=== PATIENT | female | born 1940 | race Caucasian/White ===

== ENCOUNTER 2019-07-21 14:07 | Outpatient (CLI) | payer MEDICARE, SELFPAY ==
--- NOTE | 2019-07-21 15:21 | ECG_ITS ---
Measurements Intervals [place] Rate: 84 P: 74 FL: 155 QRS: 21 QRSD: 78 T: 30 QT: 374 QTc: 443 Interpretive Statements SINUS RHYTHM BORDERLINE ST-T WAVE ABNORMALITY- DIFFUSE LEADS BASELINE ARTIFACT- I, II, III, AVR, AVL, AVF BORDERLINE ECG Electronically Signed On 07-21-2019 16:58:26 PARTY COORDINATOR by Lawrence Fermin D.O.
[2019-07-21 15:55] LABS: Basophils Percent Auto 0.4 % (0.2-1.2); Eosinophils Absolute Auto 0.1 K/mm3 (0-0.3); Eosinophils Percent Auto 0.5 % (0-4.4); Hematocrit 41.4 % (37.0-47.0); Hemoglobin 12.6 g/dL (12.0-15.0); Immature Granulocyte Absolute 0.03 K/mm3 (0.00-0.031); Immature Granulocyte Percent A 0.3 % (0-0.5); Lymphocytes Absolute Auto 1.22 K/mm3 (0.9-3.2); Lymphocytes Percent Auto 12.5 % (18.3-44.2); Mean Corpuscular HGB Conc 30.4 g/dl (32-36); Mean Corpuscular Hemoglobin 28.1 pg (26-34); Mean Corpuscular Volume 92.4 fl (80-100); Mean Platelet Volume 8.4 fl (7.4-10.4); Monocytes Absolute Auto 0.6 K/mm3 (0.1-0.6); Monocytes Percent Auto 5.6 % (2.6-8.5); Neutrophils Absolute Auto 7.9 K/mm3 (1.3-6.7); Neutrophils Percent Auto 80.7 % (45.5-73.1); Platelet Count Result 298 k/mm3 (150-375); Red Blood Count 4.48 M/mm3 (4.2-5.4); Red Cell Distribution Width 13.6 % (11.5-14.5); White Blood Count 9.8 K/mm3 (4.5-10.0)
[2019-07-21 16:09] LABS: Alanine Aminotransferase 17 U/L (4-35); Albumin Level 4.3 g/dL (3.5-5.1); Alkaline Phosphatase 182 U/L (38-126); Aspartate Amino Transferase 29 U/L (14-36); Bilirubin,Total 0.3 mg/dL (0.2-1.3); Blood Urea Nitrogen 11 mg/dL (7-17); Calcium 8.5 mg/dL (8.4-10.2); Carbon Dioxide 30 mmol/L (22-30); Chloride 102 mmol/L (98-107); Estimated Glomerular Filt Rate > 60; Glucose 94 mg/dL (65-105); INR 0.9; Potassium 3.7 mmol/L (3.4-5.0); Prothrombin Time 12.2 Seconds (11.1-14.7); Sodium 142 mmol/L (137-145)
[2019-07-21 16:10] LABS: Partial Thromboplastin Time 28.3 SECONDS (22.3-36.8)
[2019-07-21 16:11] LABS: Phenytoin Dilantin 10 ug/mL (10-20)
== END 2019-07-21 14:08 | disposition home or self-care (01) ==
LOC: ANHSURGERY 14:14
PROVIDERS: Anesthesiology; Visit Provider Urology
DX: N81.10 Cystocele, unspecified (principal); E78.00 Pure hypercholesterolemia, unspecified; G40.909 Epilepsy, unspecified, not intractable, without status epilepticus; R94.31 Abnormal electrocardiogram [ECG] [EKG]
CPT/HCPCS: 36415; 80053; 80185; 85025; 85610; 85730; 86850; 86900; 86901; 87077; 87086; 87088; 87186; 93005

== ENCOUNTER 2019-08-01 01:20 | Day surgery (SDC) | payer MEDICARE, SELFPAY ==
[2019-07-21 14:47] VITALS: BP 152/88; PULSE 86; RESP 18; TEMP 37.1; O2SAT 97; BMI 25.0
[2019-08-01] VITALS (15 sets, daily range): BP systolic 118–158; BP diastolic 59–85; PULSE 80–94; RESP 12–20; TEMP 36.5–37.3; O2SAT 94–99
--- NOTE | 2019-08-01 07:24 | WPDHPUPDATE1 ---
History and Physical Update Update Date/Time: 08/01/19 07:24 History and Physical has been reviewed, including an updated exam of the patient. There are NO changes in the patient's condition. Risks, benefits, and alternatives have been discussed and questions answered. Patient agrees to proceed with procedure.
[2019-08-01] MEDS: LACTATED RINGERS 1,000 ML 30 ML IV CONT (09:20)
--- NOTE | 2019-08-01 09:31 | WPDANESEPPF ---
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 Patient Data Age: 78 Gender: F Height: 1.68 m Weight: 70.4 kg Last Vital Signs Temp 37.1 C 07/21/19 14:47 Pulse 86 07/21/19 14:47 Resp 18 07/21/19 14:47 BP 152/88 H 07/21/19 14:47 Pulse Ox 97 07/21/19 14:47 Allergies Allergy/AdvReac Type Severity Reaction Status Date / Time No Known Allergies Allergy Verified 07/21/19 14:26 Home Medications Medication Instructions Recorded Confirmed Type acetaminophen [Tylenol Extra 1,000 mg PO QID PRN 07/21/19 07/21/19 History Strength] cholecalciferol (vitamin D3) 1,000 unit PO DAILY 07/21/19 07/21/19 History cranberry 400 mg PO DAILY 07/21/19 07/21/19 History famotidine 20 mg PO DAILY PRN 07/21/19 07/21/19 History fluticasone furoate 50 mcg INHALATION BID 07/21/19 07/21/19 History furosemide 20 mg PO DAILY 07/21/19 07/21/19 History levothyroxine 50 mcg PO DAILY 07/21/19 07/21/19 History lisinopril 2.5 mg PO DAILY 07/21/19 07/21/19 History loratadine [Claritin] 10 mg PO HS 07/21/19 07/21/19 History phenobarbital 64.8 mg PO BID 07/21/19 07/21/19 History phenytoin sodium extended 200 mg PO BID 07/21/19 07/21/19 History polyethylene glycol 3350 [Miralax] 17 g PO DAILY PRN 07/21/19 07/21/19 History pravastatin 40 mg PO HS 07/21/19 07/21/19 History pyridoxine (vitamin B6) 25 mg PO DAILY 07/21/19 07/21/19 History Patient hx anesthesia problems: none Family hx anesthesia problems: none PMFSH Past Medical History Medical History (Updated 08/01/19 @ 09:31 by Pj Guo DO) GERD (gastroesophageal reflux disease) Hyperlipidemia Hypertension Hypothyroidism BEKAH (obstructive sleep apnea) CPAP Seizure none since 1970's, still takes medication, took today SVT (supraventricular tachycardia) ablation 2004, no issues since Surgical History Surgical History (Updated 07/31/19 @ 08:44 by Pj Guo DO) History of cardiac radiofrequency ablation 2004 History of cholecystectomy History of hysterectomy Anes - Eval Final PreProcedure Day of Procedure 08/01/19 09:31 Patient weight: normal Heart: regular rate and rhythm Lungs: clear to auscultation and normal air movement Airway: Mallampati scale class III Neurological: alert and oriented Last oral intake: >/= 8 hours ASA classification: III Emergent: no Anesthetic plan: proceed Anesthesia type and monitoring: general LMA and standard monitoring Informed Consent: The patient's anesthetic plan and its attendant risks and benefits were discussed with the patient/family/POA. Questions were solicited and answers provided to the satisfaction of the patient/family/POA.
[2019-08-01] MEDS: ceFAZolin 2 GM/D5W 50 ML 2 GM/50 ML BAG IVPB (10:29)
[2019-08-01] MEDS: BUPIVACAINE/EPINEPHRINE 0.25% 50 ML VIAL INFILTRATE (11:00)
--- NOTE | 2019-08-01 12:09 | P.OP_ITS ---
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 She agrees to proceed She was correctly identified and informed consent obtained. She is on the operating room. She was given general anesthesia. Placed in a dorsal lithotomy position. All pressure points were padded. She was given appropriate perioperative antibiotics. A time-out performed. I placed a [place] retractor. I placed a Negrete catheter. I rajan out to rectangle shaped areas on the anterior and posterior vaginal wall. I anesthetized posterior vaginal. I removed the mucosa leaving the underlying fascial structures. I did the same on the anterior vaginal. I then performed a classic colpocleisis. I used 0 Vicryl sutures in a pursestring fashion. This reduced the prolapse. I used interrupt ed horizontal mattress 0 Vicryl sutures to close mucosa to mucosa. This fully completed the corpectomy. I then marked out the inner thigh incisions. I anesthetized those incisions. I anesthetized the anterior vaginal wall over the mid urethra. I made a 1 cm incision. I dissected out laterally taking great care not to injure the urethra or the vaginal wall. I passed the helical trocars. First on the left. Then on the right. I did this from the thigh incision towards the vaginal incision. Sling was connected to the trocars about the thigh incision. I tensioned the sling appropriately. I cut and the plastic sheaths. I then closed the incision with 2 0 Vicryl. On cystoscopy she had significant trabeculation. A very large capacity bladder. There is no foreign bodies in the bladder urethra. Both ureters were seen to excrete clear yellow urine. I replaced the Negrete catheter. I turned my attention to the perineum. A dry the clarence-shaped area of skin on the perineum and remove this area of skin. She had quite a bit of perineal laxity. I then performed a perineoplasty using 0 Vicryl sutures. I used a 2 Vicryl to close the mucosa. There is excellent perineal support. I cut this excess sling material. I closed the incision with glue. Negrete catheter is left indwelling. She was awakened and transferred to the PACU in stable condition. Anesthesia: GLMA Surgeon: Clifford Gutierrez MD Estimated blood loss (mL): 40 Drains: Yes (Negrete catheter) Packing: No Pathology: none sent Complications: No immediate complications Condition: stable Disposition: PACU
--- NOTE | 2019-08-01 13:20 | PC.NURSE ---
This patient, Magda Gannon, was received from PACU per stretcher to room 281. Patient/family oriented to unit policies and routines
[2019-08-01] MEDS: KCL 20 MEQ/D5/0.45% SOD CHL 1,000 ML 100 ML IV CONT (14:00)
[2019-08-01] MEDS: PHENYTOIN SODIUM 100 MG CAP 200 MG PO (21:15)
[2019-08-01] MEDS: PRAVASTATIN SODIUM 20 MG TABLET 40 MG PO (21:15)
[2019-08-01] MEDS: LORATADINE 10 MG TABLET PO (21:16)
[2019-08-02 05:40] VITALS: BP 127/71; PULSE 82; RESP 16; TEMP 37.4; O2SAT 97
--- NOTE | 2019-08-02 06:50 | WPDANESPN ---
Anes - Prog Note Post-Op Date/Time: 08/02/19 06:50 Cardiovascular status: normal Respiratory status: normal Airway patency: baseline Mental status: baseline Post-Op hydration status: normal Vital Signs: Last Vital Signs Temp 37.4 C 08/02/19 05:40 Pulse 82 08/02/19 05:40 Resp 16 08/02/19 05:40 BP 127/71 08/02/19 05:40 Pulse Ox 97 08/02/19 05:40 I/O: Intake & Output 08/01/19 08/01/19 08/02/19 15:59 23:59 07:59 Intake Total 650 50 Output Total 350 2049 1100 Balance 300 -1999 -1100 Post-procedural complaints: none Patient Feedback: Patient satisfied with anesthetic care.
[2019-08-02 07:15] VITALS: BP 121/66; PULSE 76; RESP 18; TEMP 37.4; O2SAT 96
[2019-08-02] MEDS: PHENYTOIN SODIUM 100 MG CAP 200 MG PO (07:44)
[2019-08-02] MEDS: lisinopriL 2.5 MG TABLET PO (07:45)
[2019-08-02] MEDS: LEVOTHYROXINE SODIUM 50 MCG TABLET PO (07:45)
[2019-08-02] MEDS: FUROSEMIDE 20 MG TABLET PO (07:47)
[2019-08-02] MEDS: ENOXAPARIN 30 MG/0.3 ML SYRINGE SUB-Q (09:58)
[2019-08-02] MEDS: DOCUSATE SODIUM 100 MG CAPSULE PO (09:58)
--- NOTE | 2019-08-02 13:56 | PC.NURSE ---
1327 Discharged home accompanied by her [id number], in apparent stable condition.
== END 2019-08-02 13:27 | disposition home or self-care (01) ==
LOC: ANHSURGERY 12:20 → ANHOB2 12:56
PROVIDERS: Visit Provider Urology
PROC: (CPT 57120; principal; 2019-08-01 10:30)
PROC: (CPT 57120; 2019-08-01 10:30)
DX: N81.10 Cystocele, unspecified (principal); N39.3 Stress incontinence (female) (male); I10 Essential (primary) hypertension; E78.5 Hyperlipidemia, unspecified; E03.9 Hypothyroidism, unspecified; K21.9 Gastro-esophageal reflux disease without esophagitis; G40.909 Epilepsy, unspecified, not intractable, without status epilepticus; G47.33 Obstructive sleep apnea (adult) (pediatric)
CPT/HCPCS: 57120; 57288; 99199; A9270; C1769; C1771; C1887; J0690; J1650; J2704; J3010; J3480; J7030; J7120